=== PATIENT | male | born 1970 | race Caucasian/White ===

== ENCOUNTER 2023-07-22 15:19 | Outpatient (OUT) | payer BC, SELFPAY ==
--- NOTE | 2023-07-22 | XR_ITS ---
The [address] [address] Patient Name: MARIANA GABRIEL MRN: [id number] date: 1970 Sex: M Assigned Patient Location: [facility] Current Patient Location: Accession/Order Number: [id number] Exam Date: 07/22/2023 15:36 Report Date: 07/24/2023 11:15 At the request of: SAM TAVARES Procedure: XR ankle MAGGY min 3V PROCEDURE: XR ankle MAGGY min 3V HISTORY: BILATERAL ANKLE PAIN ; chronic posterior ankle pain bilaterally COMPARISON: None. FINDINGS: BONES:Degenerative enthesopathic spurring of the calcaneus; mild on right, moderate on left. No fracture, dislocation, bone lesion. Minimal degenerative changes of the ankle joint. SOFT TISSUES:No visible soft tissue swelling. EFFUSION:None visible. OTHER: Negative. XR/XR ankle MAGGY min 3V IMPRESSION: 1. No acute bone abnormality or significant degenerative joint disease. 2. Mild-moderate degenerative calcaneal plantar spurring and small degenerative enthesophytes at the Achilles tendon insertions into the calcaneus, left greater than right. Electronically authenticated by: RL FRIED Date: 07/24/2023 11:15
== END 2023-07-22 15:20 | disposition home or self-care (01) ==
LOC: RAD 15:19
PROVIDERS: Visit Provider Podiatrist Foot & Ankle Surgery
DX: M25.571 Pain in right ankle and joints of right foot (principal); M25.572 Pain in left ankle and joints of left foot; M77.32 Calcaneal spur, left foot
CPT/HCPCS: 73610

== ENCOUNTER 2023-09-23 15:23 | Outpatient (OUT) | payer BC, SELFPAY ==
--- OUTSIDE RECORDS SUMMARY | 2023-09-23 15:29 | XMS_ITS | CCD ---
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 Name Role Phone LINDA BARRETT Admitting Unavailable LINDA BARRETT Attending Unavailable GABY SMITH V Consulting Unavailable LINDA BARRETT Consulting Unavailable Alexis Haq Attending Unavailable Alexis Haq Admitting Unavailable Javier Gilmore Primary Care Unavailable Allergies Allergy Classification Reported Allergen(s) Allergy Type Date of Onset Reaction(s) Facility (1 source) Penicillin Drug Allergy 0 [facility] Repository (1 source) Penicillins; Translations: [penicillins] Propensity to adverse reactions to drug (disorder) [facility] Repository Problems Problem Classification Problem Date Documented Da te Episodic/Chronic Other non-traumatic joint disorders (1 source) Other specific joint derangements of right shoulder, not elsewhere classified; Translations: [OTH SPEC JOINT DERANG RT SHLDR NEC] Onset: 03-20-2020 Chronic Other non-traumatic joint disorders (4 sources) Pain in right shoulder; Translations: [PAIN IN RIGHT SHOULDER] Onset: 03-14-2020 Episodic Results Test Name Value Interpretation Reference Range Facility Coding Summaryon 08-19-2023 Coding Summary HTMLBase 64 LibxfgzeRXn2dUa+PGhlYW Q+IT5HLPEoT00ivPDmuI3p F3ISDLoKWhotDMSGFJxFCt ZdlpDsCY6ubNIgNFPh IC8+LS5eAFSsRomhlMZlg0 W8qHB4H49ujh7kKOsllXH0 SJJlUzGbwtvyb7kikHk4NH cuNmluOyBt WOSghW34IEQ9fL58Oj74fN UbiMWeh0lcbCw7NaDaPDJs MAT1kBazKJbos1ThZIZjJ5 8qdEKtx9V1 ISDxlJnjfHXuXlKglJM4mF 5sZKdvzovlf8zptjvgOlv1 nl90eYQuw9S7mAR7Q4Fprd O3JQTmpILb TqgiyAHFvZ5bvsvqd9deii jxXxHvULIoOQd5GSf9HBDj hOioFgNdYH09RMY4ADStaa DcK3EaUNRd rTgvAmH8y7Q5Ss1SE5PBZd jpV6EDUFUVFOrzqTE+PC90 kw96I2DbAjqmYof2JVUmPF K2wBN4wK6m WIOfRUqbe5P8cKM8U2Ywre Vjan0lw6ihFYQyJCmzK57g kIDat2R4EYPihMC7VOOulC ktDkVrrD33 Oyc+DAAgwHpxz0ShAgrsb0 bsl2gvnOi5QvllDNAxzqTd yZqvIBT4w0DzOb6fFERiiU S6yUS9kW6w SxVmDjR4VYanS509LmHutE OsFqwsA58vV6YwfYI+PHRy Wol2SGCojWleWG4sK3KbJD RpbmctbGVm sJsnZB1lMNIgtbemUCJuyQ 1iVLLjJ6y3BwYmJjY1IJjz F1MmCZKmakccGk65rY0dBh LeTdM7NVis M3ZzodX8AVIynDEvVIkrIA B0H65yz2T6IEDzREWuIIJ3 uNN7pT0ooSqiwztkxJCqyO sgdmVydGlj CBwoQDqfK505XWUxjCobGl NvZGluZyBEYXRlOiAgMTIv MjcvMjAyMzwvdGQ+PHRkIH O5mOtaEPRm cEZpNGreTu4fcMyzbFyqUW 4hAPLxgkclAZEdmU0fYSPl sNWxxYgnXZ1mHPVgcqfzx3 08OmMuAQZ5 SNSurDSdT3RujB9fKmIjUE QtCZHbC7AxkLXbMDoqW736 EMkjCnX1VHYcijDeX2GhDK FsaWduOiB0 h4F5Qz5Rz0DghzqeD5FqhU JaCrFaUkycMQi0E1YgDloe dHI+EC13KFKeXM02NEi3RZ P2nExmWHrd ORJgC2MdyU1rItOzATYsEI RkOyc+PHRhYmxlIHdpZHRo UVhrTPUzSbPxcBwrVW5yVu 9yZGVyLWNv tCrapPFnMrDsa4lnCDGbWS ftND7yvQdkQ3HqsCQ0TKKg k6i3Lr64P17bB8PjeBX+PG CruFD6hQR1 aY2mFpIvSyJ4INtfM589Zi JaeVOaYfbvt3suf9jmmHi0 XjI3BMCswtTelIsuFEP4p0 QkFu99S44w IHdpZHRoPSIxNSUiIHZhbG bdnt5xuJ3cBe1+PGNvbCB3 eMC3nY0sXiLfYkZ2VIbwU9 49InRvcCIv Orfvw7znn3thgNh1YrTzYG ZnksCkvFubUPT5o8NjAp96 Z3FosSuby5JdAmz0rv41nD Kat7R4mKU7 C8TyNZMpcleaxKXirIftFS 2hQUCnfmlkUADhtX2zDMPe Y2a1DzLfJzG5PFyvD0Kqem E4DETsnHXz QOYkmDKOlC5pmdjne8lcai ctZvDwUWKlLQl6LPg2PWPy kYglKgGiAIJ1ZbJ2UPL5zM OslA6kqVyw bxluzY5uPxh+VDJ3hEJmvK PWTQ0tEqbypAE+PHRkIHN0 zAtnVYgjJNYjbH9sYNPsU8 l2FpBnUyF1 XMtiH6TcudF8IZGrpSNvKU NwsBSWdZ0gjqbpi8hpdoyb FhOoTZUfOGu0FXe0LNEqoD duOiBsZWZ0 QiC9WJZ2yFLuoQ2sfVyjev vkpC9fIge+QmlydGggRGF0 YEz8P4BpHkd2AUNbnYklIA 0ncGFkZGlu Mk0jtEwhaSgdBU0vHJPzhx rse550MuYtp0goNJZqrGTs YOtjRSJ2K03mt2I5TYYoTY JzPII4wJH5 pL6dwZyuikiloLIsxAmquz GpePrpDCtlUZjuH132SUCy sKxoPfDqBWc2A4BhFpj1QR ZpwIsfXI0x cKWvJVezKd1icUjktVgoPC 9nHOUlyprfy837NcGih4nd DRZxdTPtZVhqHRW1X01yt9 F4BDXiVADf XLK9rYL6sG7jhTegyprrhT VmdDsgdmVydGljYWwtYWxp O374CUCihUsyOqJwvKu3U3 UbJet9SAJz xNqvUL5mjLNqOQicNs4oqB cfhHrdTE1eBDWlekvjx884 PmUac3ggJOKfsLOrJApvAH K3B67ak6X4 DUOuWHLaGLX4wOF5zA1emB lnbjogbGVmdDsgdmVydGlj KKthNZgjK983QKHhxGksGv BhdGllbnQg RLdeVBr7Z3KeJohkeSV+PC 78OKZbWN57vIVgnDDqj0of oOx3WhHjXFJwGYD7hPadNG hha1GgWLCi Q55huESnb3P8ACZphRuhfD LqChMvpSO2cD0aTQuojckw m6thvbbtWvddj3sqlj37pF 02T11tBZie ZHRoPSIzMCUiIHZhbGlnbj 4taE3yYk3+DCPxgDH3pWE8 qA2lBDZlCzH9ILrtR682Wi RvcCIvPjxj x0psc6ieeFr5MlI0RJIwlo TjtTpoLWY6v6TyBi95G71x IHdpZHRoPSIyMCUiIHZhbG rmfm5yrD1i Ii8+NAQbvWU6tPS7iU2sXo MxReN9VGpnW464AdFbnWZc NqsfY67fO1YdnBX+PHRyPj c0JWPqfKfp PG1pvUCnTAtgYs0kBRD4Db IoZbYaEQfxS0HlTKMpxdwr mgwmyGC0JQHcKUDbbI95Lp 9udDogMTBw uKODaW7iyegqa1rxdzidFr TrPQIwBCa1VNy1XFKuqFbe UpFkRPR3UoY6VZY4nGJdqO 1hbGlnbjog fC0bV0FwGANbzdxwRu08pJ 5lApObAeM6ZPeuPgf+RlJJ MQLrYBKEIf7UWOpRIZfWVM 43S0WrPal6 EYTadTydOI9cdTHgNOhoIn 9wtQtzmScdWA6ySCUlubmx PLWoxD1xCXAecPOosLbqDQ 4wNTBpbjtm l656EqXaHSL8EFGpoRWxL0 UxlT7fLwHrVQUuAQOqL3Jx nZUoFIqvX463CNguXxE2UF GegpKhX8Sg YZSlhGltZuC8a2B4Bj1uYp 3dUX2aDQZ9XG46BB58oDGm l2R6yVP6X6WmPXLsleawxr dmbEZ5MUJw MLZkjW48jVUmMWyyZh9oh8 E1p491ONLqIYCwkJ82Qq7j nPxaBNQszORAhC5mehxvp7 xvcjogIzAw NGNnUUv2UHe7KCEiyIsxEg WeBNC0AiT7KDD7cTLltP1v fBknasxuuK5kTji+NTUgWW ZfqdH2D0Yp Gaq9KSKytFdtAQ2spAEcJL ykGs2arKpzjWtfYV6eMIKs fvcwREHhfD9mVPSmrIGzzB fhFP0qRWOv ttkdy902JxBxCYR8IPRoxL JqC0GsiK1fJqNgRNXaKLUy X3EqoOFcMAdsH038QYvuQz A7EPSefxYp J4SfEWNnaBbxTiD8x7P2Pp 5IQZfATQ72QP14pWCwz8A9 kAD0M2CfKMOfkwbpqbywgR G3TPWcPMTn aH18zUUqPVupJj2yk7M4q9 70TNOwOZFtpK62Pv4npSiq KVLcnDPAnK0qpbikv1oimn ogIzAwMDAw IDk5IPy9ZCGbbTwvEqWiPH I3LlG9MCD1gTAozS4dnNrw eivhcR8nWcp+UmVjdXJyaW 3gQO84fYQl xFsyqoJ7C9JzCdjloZI+PC 76NYLtLJ55lSVwdGSne5kc iOm2FaOuQESuUVN0bHusGK tnb4MlFLWz H92adHDgt0H1YVStcXinoE UlWmYorKZ9zP3kLNkfjewq t9kazxtoPisdq7tfci77nC 54Q43wZFno ZHRoPSIzMCUiIHZhbGlnbj 6ffN6dCw9+POIfhZL3oWO6 jU9xWqVoRqG6KKdeF432Tt RvcCIvPjxj q7hcy1xuoEb4YsIfFXGrfh JloUadENP4g0RhAo83M73q IHdpZHRoPSIyMCUiIHZhbG vscj6luV8j Ii8+SW2jd0ubpq62bF47oR I+MXVhWLD7eWpwDVlbGODn hG7wTJorQeO5YRTeQwJizP 47cGFkZGlu Qk7jqCnkpNlsBV6gZIOtwy qyf331JbLit1tcDMTwlWLi YQffKVH1X94wn3W2ZXGgSA JlBBK4qQM0 xM7zbHqqbglnfQRauCivnx DijPzeQHssXGcdO947NOBd rIhiAzCpuHBsE4acnhTRTR 1lOjwvdGQ+ VCOwUIC3gLciOYpyAGAklA 8vVRNdW8h1GbBrEoW6SBta U9QtscK2SGQuiZBjYUVgpJ GEpM7eqjjs i0fdltxmCzJmHOCbHQl1DN h4WUTmwDwtVdVbKMY6QtT5 ZVH5wIFwjK8dnXaozkpixU 9wOyc+RklO OjwvdGQ+DRReZTV3wBheYL ocMVTzvC1gQBAaF7s0VvFy YtF3BIffU4KkpiJ6VEMbiI QgMTBwdCBU qZ2rauxhe9plmfuwLbXgRX VlNVz8ODa0VDLmtBawVcAx ZUU9ViI8ZLS2xTVuzW6eoP ygekvkzE2g Oyc+TVJOOjwvdGQ+PHRkIH E1uNkqUGyzLEMyeU1tXLUe E4n4BzDvKtO6SEllI0Mlmz T2ZHWhaVOk RHZytLSJdS9ahsqrw4jlst nrPpJuOMHnILm8IPi7VPCw zRhiKeYgZSY0HkT1XNT5oN EqlC0ntIvv qilxgV0yCxc+EIZ5WUQ6HK 06LI89Z2FpOnsumDPpjWL+ PHRhYmxlIHdpZHRoPScxMD AlJyBzdHls ZT0 (more content not included)... [facility] Miscellaneouson 07-28-2023 Miscellaneous [id number]#1 .00OTGTIFF [facility] Provider Orderson 07-28-2023 Provider Orders [id number]#1 .00OTGTIFF Normal [facility] Provider Orders [id number]#1 .00OTGTIFF [facility] MRI SHOULDER RT WO CONon MRI SHOULDER RT WO CON EXAMINATION: MRI SHOULDER RT WO CON HISTORY: Contracture of joint of right shoulder region COMPARISON: No relevant comparison available. TECHNIQUE: A variety of imaging planes and parameters were utilized for visualization of suspected pathology. Imaging was performed with contrast injected into the joint space. Arthrogram is under separate report FINDINGS: ROTATOR CUFF REGION CUFF TENDONS: Moderately increased signal intensity in the supraspinatus and subscapularis tendons indicates tendon degeneration and/or tendinitis. No carlos tear is seen. CUFF MUSCLES: Normal appearing muscles. DELTOID: Normal. No significant atrophy or tear. LONG BICEPS TENDON: Normal. No abnormal signal, attrition, or tear. LABRUM/BICEPS ANCHOR SUPERIOR: Increased signal and fraying of the superior labrum, with detachment of the labrum and biceps tendon from the glenoid rim. Findings are most consistent with a Type II SLAP lesion. ANTERIOR/INFERIOR: Attenuation consistent with a patient of this age. POSTERIOR: A posterior labral tear is present. CAPSULE Normal. No visible capsular laxity or thickening. AC JOINT REGION AC JOINT: Moderate osteoarthropathy with mild-moderate narrowing of the underlying coracoacromial arch. AC LIGAMENTS: Normal acromioclavicular ligament. CC LIGAMENTS: Normal coracoclavicular ligaments. ACROMION: Normal horizontal (Type I) configuration. SUBACROMIAL BURSA: Normal. No significant effusion. HYALINE CARTILAGE: Normal. No visible cartilage narrowing or focal defect. OTHER BONES: Normal proximal humerus, glenoid, and coracoid. OTHER OBSERVATIONS: Negative. No other significant findings or glenohumeral effusion. IMPRESSION: Type II SLAP lesion of the labrum Posterior labral tear Moderate rotator cuff tendinitis Electronically authenticated by: GABY SMITH Date: 2020-03-16 07:24 Normal [facility] XR ARTHRO SHLD RTon 03-14-20 20 XR ARTHRO SHLD RT EXAMINATION: XR ARTH RO SHLD RT HISTORY: Contracture of joint of right shoulder region COMPARISON: No relevant comparison available. TECHNIQUE: An arthrogram was performed under fluoroscopic guidance using non-ionic contrast material in the usual sterile manner after obtaining informed consent. Standard level fluoroscopic mode of operation utilized. FINDINGS: JOINT: Right shoulder NEEDLE: 25 gauge, 3.5 spinal needle. MEDICATION: 3cc buffered 1% lidocaine for subcutaneous anesthesia Mix: 5 cc Omnipaque-300 iodinated contrast to visualize the joint space 0.2 cc Dotarem gadolinium contrast 5 cc of 1% lidocaine 10 cc of sterile saline total of 10 cc injected into the joint space. TECHNIQUE: Anterior approach. A single stick was successful in gaining access to the joint space. CLINICAL: Decrease in patient's pain from a 7 out of 10 before the procedure to a 4 out of 10 following the procedure. COMPLICATIONS: None. BONES: Normal. No erosion, osteophyte, fracture, or bony lesion. IMPRESSION: Technically successful right shoulder arthrogram Electronically authenticated by: GABY SMITH Date: 2020-03-14 14:10 Normal [facility] Encounters Encounter Date Encounter Type Care Provider Facility Start: 08-13-2023 [facility] Start: 03-14-2020 End: 03-14-2020 Patient encounter procedure LINDA BARRETT Facility:[facility] Payers Date Payer Category Payer Unknown [id number] 1970 Unknown [id number] 1970 Unknown [id number] 1961 Unknown [id number] Summary Purpose Family History No Family History Records FoundNo Family History Records Found Advance Directives No Advanced Directives Records FoundNo Advanced Directives Records Found Additional Source Comments (unrecognized sect ion and content) No Status Records FoundNo Status Records Found INFORMATION SOURCE (unrecogn ized section and content) DATE CREATED AUTHOR 03/20/2020 [facility] DATE CREATED AUTHOR AUTHOR'S ORGANIZ ATION 09/21/2023 [facility] FOR RECORDS PERTAINING TO PATIENTS WHO ARE OR HAVE BEEN ENROLLED IN A CHEMICAL DEPENDENCY/SUBSTANCEABUSE PROGRAM, SOME INFORMATION MAY BE OMITTED. This clinical summary was aggregated from multiple sources. Caution should be exercised in using it in the provision of clinical care. This summary normalizes information from multiple sources, and as a consequence, information in this document may materially change the coding, format and clinical context of patient data. In addition, data may be omitted in some cases. CLINICAL DECISIONS SHOULD BE BASED ON THE PRIMARY CLINICAL RECORDS. [facility]. provides no warranty or guarantee of the accuracy or completeness of information in this document.
--- NOTE | 2023-09-23 15:49 | MR_ITS ---
The [address] [address] Patient Name: MARIANA GABRIEL MRN: [id number] date: 1970 Sex: M Assigned Patient Location: MRI Current Patient Location: Accession/Order Number: [id number] Exam Date: 09/23/2023 16:15 Report Date: 09/25/2023 10:40 At the request of: SAM TAVARES Procedure: MR ankle RT wo con EXAM: MR ankle RT wo con HISTORY: Right achilles strain/tear. Chronic right posterior ankle pain. COMPARISON: None. TECHNIQUE: Multiplanar, multisequence imaging of the right ankle was performed without the administration of intravenous or intra-articular gadolinium contrast. FINDINGS: There is no acute displaced fracture or dislocation of the right ankle. Bone marrow signal is normal. The right talar dome, tibial plafond, and ankle mortise are intact. There is no right tibiotalar joint effusion. 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 The flexor tendons including the posterior tibialis, flexor digitorum longus, and flexor hallucis longus are normal and without tenosynovitis, tendinopathy, or tear. The extensor tendons including the anterior tibialis, extensor hallucis longus, and extensor digitorum longus are also normal without tenosynovitis, tendinopathy, or tear. There is mild right peroneus longus tendinopathy. There is flattening of the retromalleolar portion of the right peroneus brevis tendon. Distally, the right peroneus brevis attaches normally to the base of the fifth metatarsal. There is enthesopathy at the Achilles insertion onto the right calcaneus. There is mild right Achilles tendinopathy without tear. There is trace fluid within the right retrocalcaneal bursa. The anterior and posterior tibiofibular ligaments are intact. The anterior talofibular it is thickened, likely sequela of prior sprain. The calcaneofibular and posterior talofibular ligaments are intact and normal. The deltoid ligament is normal. The sinus tarsi is normal. There is a right plantar calcaneal spur with mild thickening of the plantar fascia. There is no increased T2 signal of the plantar fascia no perifascial edema. MR/MR ankle RT wo con IMPRESSION: 1. Mild right Achilles tendinopathy without tear. There is associated enthesopathy at the Achilles insertion onto the right calcaneus and there is trace fluid within the right retrocalcaneal bursa. 2. Mild right peroneus longus tendinopathy. There is also flattening of the retromalleolar portion of the right peroneus brevis tendon without discrete tear identified. 3. Thickening of the right anterior talofibular ligament, likely sequela of prior sprain. 4. Right plantar calcaneal spur with mild chronic plantar fasciitis. 5. 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 Electronically authenticated by: LUI SABA Date: 09/25/2023 10:40
== END 2023-09-23 15:24 | disposition home or self-care (01) ==
LOC: MRI 15:26
PROVIDERS: Visit Provider Podiatrist Foot & Ankle Surgery
DX: S86.011A Strain of right Achilles tendon, initial encounter (principal); M77.31 Calcaneal spur, right foot; M72.2 Plantar fascial fibromatosis
CPT/HCPCS: 73721

== ENCOUNTER 2024-04-29 09:44 | Outpatient (OUT) | payer BC, SELFPAY ==
--- NOTE | 2024-04-29 09:54 | ECG_ITS ---
The [facility] Test Date: 2024-04-29 Pat Name: MARIANA GABRIEL Department: Room: - Gender: Male [employer] Member: : 1970 Requested By: SAM TAVARES Order Number: [id number] Reading MD: CHAVEZ DONOVAN Measurements Intervals [place] Rate: 68 P: 64 NM: 158 QRS: 85 QRSD: 93 T: 44 QT: 381 QTc: 406 Interpretive Statements SINUS RHYTHM No previous ECG available for comparison Electronically Signed On 04-29-2024 18:46:59 EDT by CHAVEZ DONOVAN
--- OUTSIDE RECORDS SUMMARY | 2024-04-29 09:59 | XMS_ITS | CCD ---
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 Name Role Phone LINDA BARRETT Admitting Unavailable LINDA BARRETT Attending Unavailable GABY SMITH V Consulting Unavailable LINDA BARRETT Consulting Unavailable Alexis Haq Attending Unavailable Alexis Haq Admitting Unavailable Javier Gilmore Primary Care Unavailable Javier Gilmore Primary Care Unavailable Alexis Haq Attending Unavailable Alexis Haq Admitting Unavailable Allergies Allergy Classification Reported Allergen(s) Allergy Type Date of Onset Reaction(s) Facility (1 source) Penicillin Drug Allergy 0 [facility] Repository (1 source) Penicillins; Translations: [penicillins] Propensity to adverse reactions to drug (disorder) [facility] Repository Problems Problem Classification Problem Date [...] Test Name Value Interpretation Reference Range Facility Provider Orderson 02-26-2024 Provider Orders [id number] 50 [id number][facility] Physical Therapy Note [id number] 2051 [id number]#1.00O [facility] Coding Summaryon 08-19-2023 Coding Summary HTMLBase 64 OkkgfokoLTf0qAa+PGhlYW Q+RQ3TKTYeN24fbEPvxF9x Q3PTQQoXPqhaJRVQPLzRIz MminDyOB7obURxLNBm IC8+HX7xALKnFvbgxFVfb0 W2hIV8E23nwe9hOQwqlYY5 GFFnXwLilntvp1pzzGi9TC cuNmluOyBt UBCkhW04WWI8iK48Ov89aD JzqFWgf9ttgDl4OmYaIBZj AMU1dToqEByro7MaKDVlA9 7vvMSvz6Q9 VXHsrNrjvXEbUlVdxIK5sH 6gLIklxuffp9qdefwuEnr8 ih44rTSgs1S0ySX5Z4Ywie I5BBAybVMn FzjpzPVVkZ4wcmamq8bros qsFiMnJQMiCXb8VEc4GTRv zSmaFdOzVS49ZSK3CLZkfg MoU8WiRUQx kOwmWvT4k8O5Ah7ZB4WBXs qmM8EBQMJDAMzftPM+PC90 hb99G0LvArjjPji2QJZfLG X8aMP4cP3f ZQBzMHyqu6A4iEA2F1Fedv Nrnk0kw1raZKXeIFwtS60d yFCeu6H6OYDovZV3IJHycP gvMpVdyQ25 Oyc+MOOnhKeib8SkWrsfw8 fjv2nmeHi4QowwNGWeenIy qZnxHWI9p3TrLk4pFQKcxB F9kSX1bB0h IpZmDsH1GBwvB456KyGliA CcXrgtJ63mR7XouXI+PHRy Fcu8EMGjjDykJJ2cP2RsYA RpbmctbGVm dFylIV1jBGTthzmsQZKmoR 0qNVXmS8n3MdXaUcX8UIfi R8UeKHCtvljvQw71fZ6fUt WnKtM9YTau L2CukxO9HBYezRQyJNqyEH U2Z20nb5C4CFEfRCBjKAW8 dFL9iO9muZslgssjaJXbpG sgdmVydGlj YEqqJXvxI773JRBvxKugJc NvZGluZyBEYXRlOiAgMTIv MjcvMjAyMzwvdGQ+PHRkIH R7fZqmURJv hQKbIDorWa6yxMyunHifNX 9jPOVilxumKPGoiF9uXHTr eXIfrOmlEC8qNGUsbrjsp6 28YrBoBCL8 PXQbbPZbO2JvdC7aTlIdIP VzAVDjH9SwgSOtLXzrT552 ULmsFiU8PYNqmnJwP8JgWL FsaWduOiB0 z5G7Rt7Pv6IkmwtuP4RhvQ XqExHoXmguCJg3N7CoQees dHI+UP65MKBbRY19JQg5FD R4qUypKNuh YHHjE7QpzI1gItOeJZKzNQ RkOyc+PHRhYmxlIHdpZHRo VIutSOCgAvPczRgtAB8zQs 9yZGVyLWNv rUcxdICqXyCvg5xtNJYwKD gmLA9ipFlaZ2HasEB9XHXk l8n6Cc10C37tL9OxhGV+PG LdoDH7fZA3 cS2rHkXpRxE3XBfcO849Op HygFRzRlrhv1mkj8tfiBu8 YaT1RCKqoeMuaImiHSH0g5 JvDp55Y57y IHdpZHRoPSIxNSUiIHZhbG bkaa1csK3wEi0+PGNvbCB3 hMJ5qV6tXgLjVnS9OKguV1 49InRvcCIv Lhopq4ldv4nuoHk0TkWsUH QijkZaePusFCA1q4QfHz14 O3BziZiaa1RrOvz8mz95yC Kfi6U3yBO1 J2EpPISvhyfvaKZekXouFX 1xCOVkrlxoZQWbfA5iEOOx N1g2MgSvBwZ7FBdfG2Qzzx V0LCOqfRXq YLDnmAIKkL2txudic5jkgj lbUpXkXPGsYNs0LWv4GNOx fEvwLhJfIDG9WkS3ZIS5iO ClbN0adJfj lzmghD0sKwx+RXW4sAXcrN TGPC0kOylpvYF+PHRkIHN0 vKxaXOrrUZMqgW3pCZGnE6 b9YyBcJzA1 OHybR9DdusP9GFVzvJBmBX AyeQRPgF8vcltph5dzaybc JuThBDGoOQq2ZCu5MJSfyU duOiBsZWZ0 JzZ7YWL2sHEdoJ4lxCxrtd wumS3cYro+QmlydGggRGF0 WDx9S7KwNbh7YHPmoAesGG 0ncGFkZGlu Fa6juLontCvtCL5xSAJhew ytx565LwGnm4ivAVKbiJSm YZhsEJY8M02zh3W1OJJfWG DmVUC4bXK4 uU5gqGvoeawgmJKiwPosgl VnrYygTOrgCDezC276KXIq bAqtTpVrSHo2K9RqDiw6ZH WlzAxzOP7b pSMhENzcFb5bzUvfmQieLH 5vFFHkdrzwt729TfQiz7rm QDZqtHJnOJomFBF0K39et3 P1TPUsKUSx SNX6tQB1jC5xjOqtquryyO VmdDsgdmVydGljYWwtYWxp H924DEYrzGjtBhKgmJx4H2 AeNfa8DNLl uSxdDC7xuCDoJGdyAt3afJ xwgVzaXG5nDKKveubho672 IsCwo6rpTCDnqBLlNJduOJ F2O61fh4J8 MSVlGGPiBED8rUC7rF9pdR lnbjogbGVmdDsgdmVydGlj JWdmWEfgW992WCSseJysWl BhdGllbnQg RPmnTVj0P1UxOvnwkUD+PC 92PKVhHD39rAWegZAms3py fHt7JnGvEMJzIKL9hWxfFK vcl5HvRMSf Q67avWQjk5V5MTRqjWcqqQ WsUzWhzTU5rS8kGNsrhcip b9fjqqyqUftlf5ljgk44gC 00C40yOZhv ZHRoPSIzMCUiIHZhbGlnbj 6dnV8wYj6+XSAbqFY5kZV6 hW2fIRRsGvV9PClqF676Yk RvcCIvPjxj a2dlj1zivEg2EmB3DMAnwf QouWonHFC0m1QpQs06X53s IHdpZHRoPSIyMCUiIHZhbG xkks3ieE3q Ii8+WKXhnCV6nGC4bK4qQk PwBlT5NZumL664WqZonNEl JlkhU94sU7TnvLM+PHRyPj l7MPKstZhf SK1vxDUqJAwuRy1bLJH8Cz DnHbVeWHdxZ0UaSVFffnwa hewzkGG8XYBgTKGhlG73Nl 9udDogMTBw uAZJbJ3wugiqs4qyaaioLx PoDKXbMGl7SLg4JPYwzWiv YtWvDEY3MsQ5MXK3cUVdkO 1hbGlnbjog iX5xE9YtHVLvwcvcNu01qN 5lRyUyWnI5KFloKxk+RlJJ RDZvRVCICq5LOLqDTSfQNC 72H1JuXyc9 MDCbxEsaQP0pzUTlSLneOe 3rwAnzkDodRL5fNGYqbxmq UZMqzR6qNNDqdVTdgVpqDK 4wNTBpbjtm s481VcOuRFA2XDMmzBHpZ0 EgeG2cYuOdZKDoFJBcK1Kk dVPiFHlkE697XTnwHvU5PZ TpinXsU4Or PKPdxLsyHzX6x7J6Gk8kVj 8dWN2nYYM1IQ10LD75wXZn s1V6yBL3V5UsKQLjsuseda mzyAC6OAYd FVKjwA27cJAnJXzpHb9sh8 M7c717JVJpMCWgwV21Km2g gMgbYHQwrZNQvL8lhmdil6 xvcjogIzAw PIIuJYs3ZUj4PYZjpWkgYv VfSZT2RmF2IJC3gPDhvG2b uZybliqnoO9mJjo+NTUgWW OpznA8F0Ws Vyi7DZUwnTxkVI5wzFXuNV xxGq7wfDlavIrnRW3bYVEv detzJEWccF5sRAWrxBNkiC flDO9jDMOr khpjt677WmJlZIY8DCEvdS NrJ9EemW0sFkDfXEUjMSTs I5ZwlLBbNWkgA816BZxkLi P1EUKetmVv R0WqEJZzuLztVpS9j1B5Lq 1MTCnTFO50FS48kBUds0T0 iYZ1L1TgCENvrdfmrxlwxC Z7PTJrJCOr tU00mRKmUJtjOc2an3U9p4 85SVDvSPEthG00Vw8grTdn EVWczMQFbA0kfbtcb5enqb ogIzAwMDAw FMh8DSq0CAUcnRkzUhRhZE Y0WoH0KTW6vGIwnG1ofKso cydqtR7tLtm+UmVjdXJyaW 0nVI50gTMb cDdoymZ2W3BhHqozjJK+PC 58AKApNL75sYArpOHup0rl jYr7UhJyTFSaWLT4tGuoLA kfi8XbBCLd S91cfUYsq5Z4LKYwtChxzR VkEdNmfLM1tQ3vGHcprlea e3qtvgagAestt0krpf57yZ 07K41yBWuk ZHRoPSIzMCUiIHZhbGlnbj 8tmB9oPf2+PARuhUH1yWA4 eJ9rWvVxLqU9UCnjV376Zt RvcCIvPjxj n5wbb2lrfLz5OjZvPAScfh TrkSllOBL6l7PcDb94A19u IHdpZHRoPSIyMCUiIHZhbG vbjh0pqH1i Ii8+KZ6ly6ahuf55lE40gR I+QGIaRXY5pMooXTlvMJXm dN0rFYfjRnQ6RYXqYcPfxC 47cGFkZGlu Fc4ymVxmmGtpFQ2eVIMebx ibt142ZtYho7xdMYIkzWZc ILyfHGK3T78mz6V0SRCeLB AoYMY6eKL0 iU9qzUiuqerkvXQppXmgni IfqUwqDCldRVelZ890XDCa nAjiJfXguXRsR0kqgqMBDR 1lOjwvdGQ+ CTKzRXS4hZnqUGnoTZFspG 7hXCIgC5k2NjCnDsM0MLay G4SwwzY8XDUcyRFxFAQgoG RDmC2vmash l5pwjfrhVwDhBXYfFCq8MO t6JOWvmDtsTqIuOAQ8GgH6 EAN9bORjvB7lkMusxijayG 9wOyc+RklO OjwvdGQ+KPOxZCV6yTisNR onVPJtqE7iPSXzO9p3QwXt EgB5GVtjF0VcxuZ3ZZPkmP QgMTBwdCBU nQ6czvowx3hjvhqqYcDmEQ SkKYp1ENd0ZSBuaJmzSjFv ENF4SaE2JJB1qZFdvK8ffG eeheqpmY9y Oyc+TVJOOjwvdGQ+PHRkIH F3zSzhSAziSCSzwW9bSHVe J4z3IiLkCrD2QZtfB4Ctfu X3EEGidGYi XIMlrVJRsU4zpdvtn8ydgu olCfRxMELaHQj0HEu9IROh sLbwTdZiMQU4FeR1FYH4uD JycS6dgJtx edewgK1zEjk+SUI7DWD4NR 81CY52W5IgPtsexLYhvGF+ PHRhYmxlIHdpZHRoPScxMD AlJyBzdHls ZT0 (more content not included)... Normal [facility] Miscellaneouson 07-28-2023 Miscellaneous [id number]#1 .00OTGTIFF Normal [facility] Provider Orderson 07-28-2023 Provider Orders [id number]#1 .00OTGTIFF Normal [facility] Provider Orders [id number]#1 .00OTGTIFF Normal [facility] MRI SHOULDER RT WO CONon MRI SHOULDER [...] by: GABY SMITH Date: 2020-03-16 07:24 Normal [facility] XR ARTHRO SHLD RTon 03-14-20 20 XR [...] by: GABY SMITH Date: 2020-03-14 14:10 Normal [facility] Encounters Encounter Date Encounter Type Care Provider Facility Start: 03-31-2024 End: 03-31-2024 ambulatory Javier Montejo Gilmore Facility:[facility] Start: 08-13-2023 End: 10-21-2023 ambulatory Alexis Ceron [facility] Facility:[facility] Start: 03-14-2020 End: 03-14-2020 Patient encounter procedure LINDA BARRETT Facility:[facility] Payers Date Payer Category Payer Unknown [id number] 1970 Unknown [id number] 2.16.84 [id number] 1970 Unknown [id number] 2.16.8 [id number] 1968 Unknown [id number] 2.16.8 [id number] 1959 Unknown [id number] Summary Purpose Family History No Family History Records FoundNo Family History Records Found Advance Directives No Advanced Directives Records FoundNo Advanced Directives Records Found Additional Source Comments (unrecognized sect ion and content) No Status Records FoundNo Status Records Found INFORMATION SOURCE (unrecogn ized section and content) DATE CREATED AUTHOR 03/20/2020 [facility] DATE CREATED AUTHOR AUTHOR'S ORGANIZ ATION 04/03/2024 [facility] FOR RECORDS PERTAINING TO PATIENTS WHO [...] BE BASED ON THE PRIMARY CLINICAL RECORDS. [facility]. provides no warranty or guarantee of the accuracy or completeness of information in this document.
--- NOTE | 2024-04-29 10:59 | PM.PRESUREVA ---
History of Present Illness History of Present Illness Chief complaint: strain of right achillies tendon Narrative: Patient presents for preadmission testing. The patient reports bilateral ankle pain, right worse than left. He states he has used a brace along with anti-inflammatories with no relief of his symptoms. He did try physical therapy but did not get any relief and in fact states he felt worse. The patient denies any recent trauma or injury, numbness, tingling, weakness, or any other complaints. Review of Systems ROS Narrative REVIEW OF SYSTEMS: Negative except as stated in HPI, ten or more systems reviewed. Constitutional: No fever, chills, weakness ENT: No sore throat or epistaxis Cardiovascular: No edema, chest pain, palpitations, or activity intolerance Respiratory: No shortness of breath, cough, or wheezing Gastrointestinal: No abdominal pain, constipation, diarrhea, or vomiting Genitourinary: No dysuria or hematuria Neurological: No numbness, tingling, weakness, or headache Psychiatric: No mood changes PFSH PFSH Medical History (Updated 04/29/24 @ 10:58 by Romelia Zelaya NP) Calcaneal spur ?M77.30 - Calcaneal spur, unspecified foot (ICD-10) Strain of Achilles tendon ?S86.019A - Strain of unspecified Achilles tendon, initial encounter (ICD-10) Achilles tendinitis ?M76.60 - Achilles tendinitis, unspecified leg (ICD-10) Labral tear of shoulder ?S43.439A - Superior glenoid labrum lesion of unspecified shoulder, initial encounter (ICD-10) Tear meniscus knee ?S83.209A - Unspecified tear of unspecified meniscus, current injury, unspecified knee, initial encounter (ICD-10) Ankle pain ?M25.579 - Pain in unspecified ankle and joints of unspecified foot (ICD-10) Claustrophobia ?F40.240 - Claustrophobia (ICD-10) Neck pain ?M54.2 - Cervicalgia (ICD-10) Surgical History (Updated 04/29/24 @ 10:26 by Romelia Zelaya NP) History of arthroscopy of shoulder ?Z98.890 - Other specified postprocedural states (ICD-10) History of arthroscopy of knee ?Z98.890 - Other specified postprocedural states (ICD-10) Family History (Updated 04/29/24 @ 10:26 by Romelia Zelaya NP) Other Cancer Family history of DVT Family history of diabetes mellitus Family history of hypertension Family history of myocardial infarction Social History (Updated 04/29/24 @ 10:18 by Romelia Zelaya NP) Within the past year, how often did you have a drink containing alcohol: 2-3 times a week Smoking status: Never smoker Non-prescribed substance use: denies use Previous occupational history: [employer] Highest level of school completed/degree received: some college, no degree Meds Home Medications and Allergies Allergies Allergy/AdvReac Type Severity Reaction Status Date / Time Penicillins Allergy Hives Verified 04/29/24 10:14 Exam Narrative Exam Narrative: Constitutional: Awake, alert, comfortable, well-appearing, nontoxic, interactive, vital signs as charted Head: Normocephalic, atraumatic Neck: Supple, normal appearance, normal range of motion, no meningeal signs, no lymphadenopathy Respiratory: No respiratory distress, breath sounds clear Cardiovascular: Regular rate and rhythm, strong and regular heart tones Musculoskeletal: Right ankle tenderness at the insertion of the Achilles tendon, slight limitation in ROM of the right ankle due to discomfort, good capillary refill, sensation intact Skin: No rashes or induration, no lesions, only visible skin inspected Neuro: No neurological deficits, normal sensation Psychiatric: Oriented ?3, normal affect Assessment and Plan Assessment and Plan (1) Calcaneal spur: (2) Strain of Achilles tendon: (3) Achilles tendinitis: (4) Ankle pain: Plan Right Achilles tendon repair, excision of calcaneal spur with tendon transfers as needed scheduled with Dr. Haq May 19 2024.
== END 2024-04-29 09:45 | disposition home or self-care (01) ==
LOC: PST 09:45
PROVIDERS: Visit Provider Podiatrist Foot & Ankle Surgery
DX: Z01.810 Encounter for preprocedural cardiovascular examination (principal); Z01.818 Encounter for other preprocedural examination; S86.011A Strain of right Achilles tendon, initial encounter; M77.31 Calcaneal spur, right foot
CPT/HCPCS: 93005; G0463

== ENCOUNTER 2024-05-19 06:17 | Day surgery (SDC) | payer BC, SELFPAY ==
[2024-04-29 10:57] VITALS: BP 129/84; PULSE 79; TEMP 36.4; O2SAT 99; BMI 29.3
[2024-05-19] VITALS (14 sets, daily range): BP systolic 117–147; BP diastolic 73–95; PULSE 78–93; TEMP 36.6; O2SAT 96–99; BMI 29.2
--- OUTSIDE RECORDS SUMMARY | 2024-05-19 06:23 | XMS_ITS | CCD ---
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 Mechanic Name Role Phone LINDA BARRETT Admitting Unavailable [...] (1 source) Penicillin Drug Allergy 0 [facility] Repository (1 source) Penicillins; Translations: [penicillins] Propensity to adverse reactions to drug (disorder) [facility] Repository Problems Problem Classification Problem Date Documented [...] Range Facility Provider Orderson 02-26-2024 Provider Orders [id number]#1.0 [facility] Noteon 09-25 Physical Therapy Note [id number] 2051 [id number]#1.00O [facility] Coding Summaryon 08-19-2023 Coding Summary HTMLBase 64 EsgsxlkpQAl4wKv+PGhlYW Q+VC4TOTHjU08faEThsG5o F3AYXGqIPoknEGGSCYlWLg XivwMtYW7xqXQmDGBw IC8+MI6vGAHiVucawVMji4 Z1uFZ0D22ubb7oZAypeMS4 BUQtNgOjuqnmg5utzDk8UK cuNmluOyBt NRXvyB11LBF9gH30Ul86dC OxeZJcx0hviUb5IzGrREHj KKL6nBjwHOtrl3MrWKOoO9 2hlOUso3C1 GLZuuQbfqOSsLhRqpLE3lO 1aEVrkozxch0limdruPaa4 ml61wLUxf3D0bJL4J1Tpyu Z3OBQwzDOw CsayjFKTtL9womssg9eckw khVaBuKQZoFVd0YVw7HXRl pHklMrNqNB35DEO5TARhwt AxP0OtDZQr lMjwWsO1q0C9Bv0CS1PFVu snK3QQKYSPEXppoFE+PC90 gx93R5IbBhkkDbc3RQHtYU B9aGM3fM4x SWCaLZbpy8P2aJI7A0Rmth Xiku7ga1ydDJSbAFuqS55r sEGxh4O7SCOzlQK0SWBwlU hdJmGxxC16 Oyc+IPOdtDpmg5WxStahy1 llc6dhzTo8GakxADIpqpIu nSzzQMV0w5DfLp2hCSEwsF O8mTM1xC9t CyBaKzL4URplB083DpHpjC JaHkhgP60aJ7FwsYK+PHRy Zok1NDColAoaQK0wB0ZkEL RpbmctbGVm oOkqKL1rGJEollnxTVQqmR 0cHHSaH2z5MhFxZtX1YIcm Q4JzRKFjlwnlCv55qC3kQq TvQeB5MFjy F6AnppZ7QNNehROoFDhxUQ X4L01le3G8VPCcJHHhYFM8 zBE9vK6nrLjcvvpjwJPwfT sgdmVydGlj KShdHHrmG591DUDabCwzCc NvZGluZyBEYXRlOiAgMTIv MjcvMjAyMzwvdGQ+PHRkIH L4bPylVFHo fJWzUGsoTn2bhEoqsSdfGZ 0sHZXgebpoRKTshM7dUVEm lGVykNsmOU1cUEQgilryw2 22HuKrAUI2 YJEzbQUyK3CqzQ0hSaDnYD OuZLJdC2PslTHsJUryS878 CPexHbS7MKCsheBqD6XsVH FsaWduOiB0 f0V1Xb4Xl5OtjtwuX5WlyW PiNlHoHkngMHt4L9LwUqyo dHI+RD64RSWuIZ03HDv3OO B1yLthPQjz JDVqN9OnvO4jNoHxEQMwVT RkOyc+PHRhYmxlIHdpZHRo IXxjCRQaXfOreNilKT7rTb 9yZGVyLWNv oUuvtMJxGoSln3rdMAVkGZ xdTE8wlTxeN2YqyGF9IHWa n1i6Oe73W41wF2DkkQG+PG NzkIJ0zXL5 iU6gDmYgQmP2SZffH148Wo CvnDHqQeuml4hcv2chmHx4 HhN9VFToxuIswQduWVJ6g3 BxSp83U14w IHdpZHRoPSIxNSUiIHZhbG lide6djX9iWr5+PGNvbCB3 wMQ3lM4bZaDoQoY3BZnvK6 49InRvcCIv Tljvj1ftw1wpoWx9ShAaFX QjgyUeeSulXOD2w2QyQw64 R0HxwOeaz1WgKiz3nd17aN Rxu3N6nPU5 H0VmZQRrrvvayHPivEucME 2fQNVczertKWTfrZ5lQBZi L3s2OyPxEiC4NQrpN3Rxye X2XVCytOOe QTDfeGKTxS2bhazya3babp atZqRxNXKrEQn7BGy9IMEw bRcaQlScZZS5OeD1SUR6kS AbqW2lvTzb mzpciQ5oZdr+RRB3yYOoqG RUES5lIascbWN+PHRkIHN0 yVncEHslKHUziW8iWSGnH6 m5WlHqFaG2 OCfdX2XlytW0UOJjzYFlCC SwnOHKmI6ikitay6dlfnpm EgKdUTOuIBg9HQv0KXCrkN duOiBsZWZ0 NeU6QVJ1uLJmzR6ahTefuo qfwG3vCnr+QmlydGggRGF0 QJt7D4NdXvb9IIAagFeeOI 0ncGFkZGlu Si6gbWxcvGlrCB2zHZDxcn skx780OvTyo6hhDSRaxGVt LVxyIWJ3O69ev5O6HOSdZN PdQYL9mTH9 cE7cbYphupipgITttHwelb DviHdjZEwaDMiyB043PABl wMimGqCyGZq6S2MiSwz3LA PxkCpjYF4o rFZtBQlcTw8dsTzlkPpwLJ 0xNBBqqyjql713XuYwb4qs WZZwoMCgRFluVDD6O59am0 E9XGNmUMJc HES8cUW3iI4zmSceqjbwhE VmdDsgdmVydGljYWwtYWxp P925MLCatJsuYnDyxKc4G1 XgMpt8ZJOg wYkuVJ7zcTOuFJeiRp2xrN tifXoaTE2bAYLajmcqc044 BgZoq5ytTBXrlIViFAmcKA L5J21yp1G1 EOOdCXWuIUT1nRR5lK6gtS lnbjogbGVmdDsgdmVydGlj FUgiBZuwT862HAEuiCwvYg BhdGllbnQg EAatHJn5W5EeLdqldXZ+PC 16EPWrDK95mKVvfRDsm1sq dGb1TxYcSXAoDUN4rPcgHX rrc3XkLPZb K20vdBDha8J9OUZntMlzwV ZdNrCfrHY0pA6yFOttpsnc a6zvskydZjnun2mbei58fL 80U10zDNdm ZHRoPSIzMCUiIHZhbGlnbj 1fhV8oOi9+PBOboFW3dMF4 aM1cCCZbDmP8LFqoV098Ye RvcCIvPjxj e8ask4limBi9PvM2ASUnbc BenUpyTOJ1u7RrAs39B48a IHdpZHRoPSIyMCUiIHZhbG dxcv4taQ8e Ii8+OLOcbOT8oTZ9jZ3xFg AoDxW3WToiN319JkKimKYz BdguR49rE5YyuHJ+PHRyPj y7NUGwgAxo MS9zjNGwCHbnRf6cBPW2Rj VlPyLtRLmeJ3LiDIHgevsg ojlxyVR0TKJxSZCjiM71Kd 9udDogMTBw wCLYpY7hibxqc3rowrvrVi PhLRGsRRg8HWw0NIRbbMrx KnEmFMV4AsO9CIZ3zYOeqN 1hbGlnbjog pB0kR0ZfKVAgexrzWq41bO 5jXlXsUkF5XYljGzl+RlJJ EOCdPBSETh0ZRUdHLAbXAL 91X8AyXww1 RNKhgTrlRW4mwGDaAOklJq 5ztAvlrOnvQC7tOCHobsvo MOYdvA3fPHGvtMQzaVxqYG 4wNTBpbjtm t106TlAsWQE4SURzuLNaM8 CygN3rInWiMMFdQLJiB8Gl uIHmAHdqU822ELhvXcC6IE LaoyZzT4Yl CYAieLfbAlB2c2T4Df4eJk 2qRH5kYIK7XB67FP80eZJc n3Q7bXH7H9RgFAVybcfmoy ylySD7EBZe BMKvzI92yXEoVOitPq6tf4 K6x061JUTrIEBtjU31Tn9z oFkpADAkfRXJsV1pxygal7 xvcjogIzAw XARdUAr1SCg7VRMjgQssMs CoERX6GvS7WJN9dOEgrV9x aXsolcqxkI6kLkl+NTUgWW LzhsS1Z6Ve Bbn3JRSjdIinWN9mlCTcIO vtRr3riTheyCgbKL8cYSSz ztliEGPhcI3kJKJplRQelM dxJU0fWNUq dkmhp498ZlHbNEO8ZBHkyC ScU0LmiF8uGlPvFMNfUFDg D4WegNMzGLaxA939IJrqTn V5FNCncpQm N1QqCTLyhKxpCtR3e9N7Vq 1OBDfLZB66SW83iZDab4T7 mCG7F0BbBCMddtsqsrqczR Q1EXBrZDSs eY06nZUmAAvzBe2wt9E8e7 11EYEuNTIxsO09Lh5qrPvw CQLiyYQKpJ9arctqv3balj ogIzAwMDAw TFw3XKm3IEYtjQxvUoLrDU T6OfZ3YMY9cIRjsD2wtTtc numtfO2mMbi+UmVjdXJyaW 9xUU56bBLa yZgdchE9J6ZnKfbrbAB+PC 18MJMkEZ80kNKpnEHgk6zj wRq9OdOzTESkKVA3aQsgBF dui7DwFGMf V61fwDCby0Q4XFTznWikoD TbMoVioCR8gE2tXQwxlarx d4ddrijuSdguf4vewh63gU 25Z03xBSwb ZHRoPSIzMCUiIHZhbGlnbj 7rnZ3mQd4+OCAcmRH1vEX1 pN3tYeFgIdE5CWdmD247Rc RvcCIvPjxj m2sky2uuvRh5VwRtILGzxt FqdWezGVJ3n3RfAy40V52u IHdpZHRoPSIyMCUiIHZhbG nahs3alI6d Ii8+CA9cn3lqjn14kP12aY I+BYXnRAV8lZvwYMaqCYQj sR6fEKwyZqE5JXZeSbKjwY 47cGFkZGlu Qw4hcTuwvXmhJD1hZNRbfk apz826YeCyf3bwURGzyBOq PGvmCBE4E28ln6C9EPXdKP LcDAZ7nPF6 aK8avNcoysdwaFTjnKdmab LdrFqdBAukDGhkY885ZQVe nVvbCmIjdDVlQ2dvcwPFQR 1lOjwvdGQ+ QZZwNPL9cZhuOOonKBDksA 9zJTUzX5t7CsPrBhS0KEjh D5ToxaC0PEDthJRoAQBprJ PRgQ2geclg y9cvctzaFaNdJNPgUIu3JG l1CHYxsMygVmDrPQE7PuA9 RSH0eNFzsP7ozFslfyxbdW 9wOyc+RklO OjwvdGQ+TIImUDI8aNbfZF tjSRJmcN5xWZGqQ6j6TwHy JmU6VJasR7ZqgfJ0ZHZudO QgMTBwdCBU cA2bdjhsp8eyxjwsSbLyGB SkXLh4YDi5CGIimNliWhCl HBK9JnB1VAU1eVRvwJ2gpP gwievqmU0p Oyc+TVJOOjwvdGQ+PHRkIH Y0mIonEIsoXRZhtC2wTFTe P2o0UnMoTgF1IPsmH6Flei T8NJMqzJZp DEPzwWIClW1rtiktl0hjhv pfDpIfDIAjMEi3OBn9VVIe qLbqMoMlNJQ3ByA5NXB5wV ImxT7bkDxn lohedV8vRnp+MFY7BPC9CM 47JQ93K7HbCxbtpNCbeBY+ PHRhYmxlIHdpZHRoPScxMD AlJyBzdHls ZT0 (more content not included)... Normal [facility] Miscellaneouson 07-28-2023 Miscellaneous [id number].. 20 [id number] .00OTGTIFF Normal [facility] Provider Orderson 07-28-2023 Provider Orders [id number]. [id number]#1 .00OTGTIFF Normal [facility] Provider Orders [id number]. [id number]#1 .00OTGTIFF Normal [facility] MRI SHOULDER RT WO CONon [...] by: GABY SMITH Date: 2020-03-16 07:24 Normal [facility] XR ARTHRO SHLD RTon 03-14-20 20 [...] by: GABY SMITH Date: 2020-03-14 14:10 Normal [facility] Encounters Encounter Date Encounter Type Care Provider Facility Start: 03-31-2024 End: 03-31-2024 ambulatory Javier Montejo [place] Facility:[facility] Start: 08-13-2023 End: 10-21-2023 ambulatory Alexis Ceron [facility] Facility:[facility] Start: 03-14-2020 End: 03-14-2020 Patient encounter procedure LINDA BARRETT Facility:[facility] Payers Date Payer Category Payer Unknown [id number] 1970 Unknown [id number] 1970 Unknown [id number] 1970 Unknown [id number] 1959 Unknown [id number] Summary Purpose Family History No Family History Records FoundNo Family History Records Found Advance Directives No Advanced Directives Records FoundNo Advanced Directives Records Found Additional Source Comments (unrecognized sect ion and content) No Status Records FoundNo Status Records Found INFORMATION SOURCE (unrecogn ized section and content) DATE CREATED AUTHOR 03/20/2020 [facility] DATE CREATED AUTHOR AUTHOR'S ORGANIZ ATION 04/03/2024 [facility] FOR RECORDS PERTAINING TO PATIENTS WHO ARE [...] BE BASED ON THE PRIMARY CLINICAL RECORDS. [employer] [facility]. provides no warranty or guarantee of the accuracy or completeness of information in this document.
[2024-05-19 06:30] LABS: Basophils Absolute Auto 0.1 10^3/uL (0.0-0.1); Basophils Percent Auto 1.1 % (0.2-2.0); Eosinophils Absolute Auto 0.3 10^3/uL (0.0-0.7); Eosinophils Percent Auto 3.6 % (0.9-7.0); Hematocrit 46.4 % (42.0-54.0); Hemoglobin 15.6 g/dL (14.0-18.0); Immature Granulocytes Abs Auto 0.03 10^3/uL (0.00-0.03); Immature Granulocytes Pct Auto 0.3 % (0.0-0.5); Lymphocytes Absolute Auto 1.8 10^3/uL (1.2-3.8); Lymphocytes Percent Auto 20.2 % (20.5-60.0); Mean Corpuscular HGB Conc 33.6 g/dL (29.9-35.2); Mean Corpuscular Hemoglobin 28.7 pg (25.9-34.0); Mean Corpuscular Volume 85.3 fL (80.0-94.0); Mean Platelet Volume 8.8 fL (9.5-13.5); Monocytes Absolute Auto 0.6 10^3/uL (0.3-0.8); Monocytes Percent Auto 6.8 % (1.7-12.0); Neutrophils Absolute Auto 5.9 10^3/uL (1.4-6.5); Platelet Count 333 10^3/uL (150-450); Red Blood Count 5.44 10^6/uL (4.70-6.10); Red Cell Distribution Width 12.6 % (11.0-15.0); White Blood Count 8.7 10^3/uL (4.0-11.0)
[2024-05-19 06:55] LABS: Glucometer 104 mg/dL (74-106)
[2024-05-19] MEDS: LACTATED RINGER'S SOLUTION 1,000 ML 50 ML IV ×2 (07:36→08:41)
[2024-05-19] MEDS: CEFAZOLIN SODIUM 2 GM/50 ML D5W PREMIX IV (07:36)
--- NOTE | 2024-05-19 07:49 | P.ORON_ITS ---
Brief Operative Note Date of procedure: 05/19/24 Pre-op diagnosis general: Right Achilles tendinitis with possible partial tear and calcaneal spur Post-op diagnosis: other (Right Achilles tendinosis with partial tear and calcaneal spur) Procedure: Procedure performed: Repair of right Achilles tendon and excision of calcaneal spur with application of short leg splint Indications for procedure: Patient is a healthy 53-year-old male whose had bilateral Achilles tendon pain for over a year which has been worsening in pain and dysfunction. His symptoms have limited his ability to perform activities of daily living and recreation. He initially was treated nonoperatively with 6 weeks of formal physical therapy, RICE therapy, anti-inflammatories such as meloxicam, shoe and activity modification. Unfortunately nonoperative care did not alleviate his symptoms. He did have an MRI in August 2023, which demonstrated mild thickening of the Achilles tendon with associated retrocalcaneal bursitis and enthesophyte associated with posterior calcaneal spur. At his most recent appointment as well as examination in the preoperative holding area there was worsening pain, swelling and thickening of the Achilles tendon and findings are concerning for partial tear. Due to his failure to respond to nonsurgical care patient wished to undergo surgical reconstruction and I recommended the above procedures. Intraoperative findings: Thickening of the Achilles tendon with surrounding synovitis and retrocalcaneal bursitis. Small partial-thickness tear near the insertion with associated scar tissue. Retrocalcaneal spur was noted. Bone quality was within normal limits. Procedure in detail: Patient was identified in preoperative holding and correct side and site were marked and consent was obtained. Regional anesthesia was performed by the anesthesia team. Patient was brought back in the operating room and preoperative antibiotics were started. Patient was intubated then flipped onto the OR table in a well-padded prone position. The right lower extr emity was prepped and draped in usual sterile fashion and formal timeout was performed. The operative extremity was exsanguinated and the tourniquet was inflated. A midline longitudinal incision over the Achilles tendon was performed and a combination of sharp and blunt dissection with all bleeders being coagulated allowed access to the Achilles tendon. The non-insertional and insertional areas of the Achilles tendon were completely exposed. There was significant thickening and nonviable tissue noted in Achilles tendon. Retrocalcaneal spur was noted and upon incision of the Achilles tendon retrocalcaneal bursitis with surrounding inflammatory tissue was noted and excised. The Achilles tendon was detached from its insertion and inspected closely. Nonviable tendon was excised. Attention was then drawn to the retrocalcaneal spur and an osteotome was used to remove all excess bone and inflammatory tissue. A rongeur and rasp were then used to contour the retrocalcaneal to an anatomic appearance. The area was flushed with copious amounts of sterile saline and a wet lap was placed over the Achilles tendon. 2 drill holes were placed into the proximal aspect of the calcaneal tuberosity a nd 3.3 mm suture anchors are placed accordingly. 4 sutures from the medial anchor were placed from distal to proximal on the medial half of the distal Achilles while the 4 sutures from the lateral anchor were placed proximal to distal on the lateral half of the tendon. The 2 distal sutures were used to repair the partial tear of the Achilles. Then 2 drill holes were placed in the distal aspect of the calcaneal tuberosity. The needles were removed from all of the sutures. Then 2 sutures from each anchor were placed through a 4.5 mm knotless anchor. The foot was held in maximum plantarflexion while distal traction using an Allis clamp was placed onto the Achilles tendon. The sutures within the first anchor were tensioned appropriately and inserted into the medial distal drill hole accordingly. This process was repeated with an additional 4.5 mm knotless anchor which was placed into the lateral distal drill hole accordingly. Strength of the repair and reattachment were tested and noted to be stable and the foot was in 15 degrees of plantarflexion. The surgical site was irrigated with copious saline. Peritenon and deep fascia were closed with observable suture and the tourniquet was deflated with a prompt hyperemic response. Skin was then closed in layers. Xeroform was placed over the incision followed by dry sterile dressing consisting of 4 x 4's and Curlex. Then multiple layers of cast padding were placed from the forefoot to the popliteal fossa followed by a layer of Baltazar wrap's followed by additional layers of cast padding. A posterior plaster splint was placed onto the plantar foot and posterior leg and was allowed to dry while holding the foot in plantarflexion. The splint was secured with an Baltazar wrap. The patient was transferred to the [facility] then was extubated. Patient tolerated the procedure and anesthesia well and was transferred to the recovery room with vital signs stable and brisk capillary refill to the right toes. Postoperative plan: Discharge home under 's care Prescriptions were sent to the pharmacy using my office EMR Strict nonweightbearing for approximately 3 weeks or until the incision has healed Follow-up in 1 week to be placed into a fiberglass cast Implants: Medline 3.3 suture anchors & 4.5 mm knotless anchors Anesthesia: regional and General-ET Surgeon: Alexis Haq Estimated blood loss (mL): 10 Pathology: other (Achilles tendon) Condition: stable Disposition: PACU
--- NOTE | 2024-05-19 08:45 | PC.NURSE ---
0720- Final timeout completed. Patient placed on O2 @ 2l/min via nc and monitor. Patient positioned on back. Right leg draped in sterile technique per Dr. Foster. 0724- Right abductor canal block initiated. 0729- Right abductor canal block completed. Patient tolerated it well. 0730- Patient positioned on left side and right popliteal block initiated. 0736- Popliteal block completed. Patient tolerated it well. See posted vital signs.
--- NOTE | 2024-05-19 09:10 | XR_ITS ---
The [address] [address] Patient Name: MARIANA GABRIEL MRN: [id number] date: 1970 Sex: M Assigned Patient Location: [facility] Current Patient Location: Accession/Order Number: [id number] Exam Date: 05/19/2024 10:12 Report Date: 05/20/2024 08:34 At the request of: SAM TAVARES Procedure: XR foot RT min 3V PROCEDURE: XR foot RT min 3V HISTORY: calcaneal spur, Achilles tear COMPARISON: XR ankle bilateral 07/22/2023 FINDINGS: BONES:Suspect resection of Achilles calcaneal enthesophytes and possibly the plantar enthesophyte. SOFT TISSUES:No visible soft tissue swelling. EFFUSION:None visible. OTHER: Negative. XR/XR foot RT min 3V IMPRESSION: 1. Images were obtained to cast material which limits visibility of the affected area. 2. Suspect resection of Achilles tendon and plantar degenerative enthesophytes. Electronically authenticated by: RL FRIED Date: 05/20/2024 08:34
--- NOTE | 2024-05-19 10:03 | PC.NURSE ---
0950: pts toes are pink and warm with good capillary refill.
[2024-05-19 10:06] LABS: Glucometer 116 mg/dL (74-106)
[2024-05-19] MEDS: ONDANSETRON 4 MG RAPDIS TABLET SL (10:19)
--- NOTE | 2024-05-19 10:22 | PC.NURSE ---
1019: pt complains of nausea,medicated at this time with Zofran ODT.
[2024-05-19] MEDS: PROMETHAZINE HCL 25 MG TABLET PO (11:48)
== END 2024-05-19 13:45 | disposition home or self-care (01) ==
PROVIDERS: Anesthesiology; Visit Provider Podiatrist Foot & Ankle Surgery
PROC: (CPT 1472; principal; 2024-05-19 07:30)
DX: S86.011A Strain of right Achilles tendon, initial encounter (principal); M77.31 Calcaneal spur, right foot; M76.61 Achilles tendinitis, right leg
CPT/HCPCS: 27650; 28118; 36415; 64445; 64450; 73630; 76942; 82948; 85025; C1713; J0131; J0690; J1100; J1885; J2250; J2405; J2704; J2795; J3010; Q0162; Q0169